=== PATIENT | female | born 1970 | race Caucasian/White ===

== ENCOUNTER 2022-11-30 16:42 | Inpatient (IN) | payer OTHER ==
[~2022-11-30] VITALS: Ht 160 cm; Wt 54.4 kg
[2022-11-30 18:07] LABS: BASOPHILS % 0.1 % (0.0-2.0); EOSINOPHILS % 0.3 % (0.0-5.0); HEMATOCRIT. 46.5 % (36.0-48.0); HEMOGLOBIN. 15.7 g/dL (12.0-16.0); LYMPHOCYTES % 10.2 % (20.0-50.0); MEAN CORPUSCULAR HEMOGLOBIN 31.8 pg (28.0-32.0); MEAN CORPUSCULAR HGB CONC 33.7 g/dL (31.0-37.0); MEAN CORPUSCULAR VOLUME 94.5 fL (81.0-99.0); MEAN PLATELET VOLUME 6.9 fl (7.4-10.4); MONOCYTES % 2.3 % (2.0-8.0); NEUTROPHILS % 87.1 % (40.0-76.0); PLATELET 610 x1000/uL (130-400); RED BLOOD CELL COUNT 4.93 mill/uL (4.2-5.4); RED CELL DISTRIBUTION WIDTH 12.9 % (11.6-14.6); WHITE BLOOD COUNT 8.4 x1000/uL (4.5-11.0)
[2022-11-30 18:16] LABS: CHLORIDE 106 mEq/L (98-107); INDEX HEMOLYSI 1 (1-3); INDEX ICTERIC 1 (1-4); INDEX LIPEMIC 1 (1-3); POTASSIUM 3.8 mEq/L (3.5-5.1); SODIUM 137 mEq/L (136-145)
[2022-11-30 18:25] LABS: ALANINE AMINOTRANSFERASE 40 IU/L (13-61); ALBUMIN 4.2 g/dL (3.4-5.0); ASPARTATE AMINOTRANSFERASE 26 IU/L (15-37); BILIRUBIN TOTAL 0.3 mg/dL (0.1-1.0); CALCIUM 9.5 mg/dL (8.5-10.1); CARBON DIOXIDE 24 mEq/L (21-32); CREATININE 0.8 mg/dL (0.6-1.3); GLUCOSE 122 mg/dL (70-105); PROTEIN TOTAL 8.8 g/dL (6.0-8.3); UREA NITROGEN BLOOD 17 mg/dL (7-21)
[2022-11-30 20:16] LABS: HCG SCREEN NEGATIVE
[2022-11-30 21:00] LABS: TROPONIN I HIGH SENSITIVITY 6 ng/L (<54)
[2022-11-30] MEDS ORDERED: FAMOTIDINE 20MG/2ML VIAL IV NR (21:15)
[2022-11-30] MEDS ORDERED: SODIUM CHLORIDE 0.9% 500 ML IV NR (21:17)
[2022-11-30] MEDS: ONDANSETRON HCL 4MG/2ML INJ IV NR (22:19)
[2022-12-01] MEDS ORDERED: IPRATROPIUM/ALBUTEROL 0.5-3(2.5)MG/3ML NEB HHN PRN
[2022-12-01] MEDS ORDERED: ACETAMINOPHEN 325MG TABLET PO PRN ×2
[2022-12-01] MEDS ORDERED: DIPHENHYDRAMINE 50MG/ML VIAL IV PRN
[2022-12-01] MEDS ORDERED: PROMETHAZINE HCL 25MG TABLET PO PRN
[2022-12-01] MEDS ORDERED: DOCUSATE SODIUM 100MG CAPSULE PO PRN
[2022-12-01] MEDS ORDERED: MAGNESIUM/ALUMINUM HYDROXIDE/SIMETHICONE 30ML UDC PO PRN
[2022-12-01] MEDS ORDERED: CLONIDINE 0.1MG TABLET PO PRN
[2022-12-01] MEDS ORDERED: GUAIFENESIN 200MG/10ML SUGAR FREE UDC PO PRN
[2022-12-01 01:08] LABS: CLARITY URINE CLOUDY (CLEAR); COLOR URINE DARK YELLOW (YELLOW); GLUCOSE URINE NEGATIVE (NEGATIVE); KETONES URINE 2+ (NEGATIVE); LEUKOCYTE ESTERASE URINE 2+ (NEGATIVE); NITRITE URINE NEGATIVE (NEGATIVE); OCCULT BLOOD URINE NEGATIVE (NEGATIVE); PH URINE 5.5 (4.5-8.0); PROTEIN URINE TRACE (NEGATIVE); SPECIFIC GRAVITY URINE 1.034 (1.005-1.030)
[2022-12-01 02:00] VITALS: BP 115/73; PULSE 90; RESP 20; TEMP 99.5
[2022-12-01] MEDS: ONDANSETRON HCL 4MG/2ML INJ IV NR (02:10)
[2022-12-01 02:21] LABS: WBC URINE 25-50 /hpf (0-2)
[2022-12-01 02:22] LABS: SQUAMOUS EPITHELIAL CELL URINE 1+ /lpf (RARE/1+)
[2022-12-01 02:23] LABS: BACTERIA URINE 3+
[2022-12-01] MEDS: ONDANSETRON HCL 4MG/2ML INJ IV PRN ×2 (02:26→08:42)
[2022-12-01] MEDS ORDERED: CEFTRIAXONE 2GM/50ML (ADDEASE) 50 ML IV SCH (03:30)
[2022-12-01] MEDS ORDERED: CEFTRIAXONE 2 G in DEXTROSE 5% WATER 50 ML IV SCH (04:30)
[2022-12-01] MEDS ORDERED: IOHEXOL-300 100 ML BOTTLE ONE (06:12)
[2022-12-01] MEDS ORDERED: METOCLOPRAMIDE HCL 10MG/2ML VIAL IV NR (06:15)
[2022-12-01] MEDS ORDERED: SODIUM CHLORIDE 0.9% 1,000 ML IV SCH (06:30)
[2022-12-01 08:20] VITALS: BP 112/68; PULSE 95; RESP 18; TEMP 97.5
[2022-12-01 08:54] LABS: BASOPHILS % 0.4 % (0.0-2.0); EOSINOPHILS % 0.2 % (0.0-5.0); HEMOGLOBIN. 12.9 g/dL (12.0-16.0); LYMPHOCYTES % 11.9 % (20.0-50.0); MEAN CORPUSCULAR HEMOGLOBIN 32.2 pg (28.0-32.0); MEAN CORPUSCULAR HGB CONC 33.9 g/dL (31.0-37.0); MEAN PLATELET VOLUME 7.2 fl (7.4-10.4); MONOCYTES % 6.2 % (2.0-8.0); NEUTROPHILS % 81.3 % (40.0-76.0); PLATELET 515 x1000/uL (130-400); RED CELL DISTRIBUTION WIDTH 12.8 % (11.6-14.6); WHITE BLOOD COUNT 9.5 x1000/uL (4.5-11.0)
[2022-12-01] MEDS ORDERED: MECLIZINE 25MG TABLET PO SCH (09:00)
[2022-12-01 09:08] LABS: CHLORIDE 114 mEq/L (98-107); SODIUM 141 mEq/L (136-145)
[2022-12-01 09:23] LABS: ALANINE AMINOTRANSFERASE 29 IU/L (13-61); ALBUMIN 3.3 g/dL (3.4-5.0); ASPARTATE AMINOTRANSFERASE 18 IU/L (15-37); BILIRUBIN TOTAL 0.2 mg/dL (0.1-1.0); CALCIUM 8.8 mg/dL (8.5-10.1); CARBON DIOXIDE 19 mEq/L (21-32); CHOLESTEROL 145 mg/dL (<200); CREATININE 0.8 mg/dL (0.6-1.3); GLUCOSE 97 mg/dL (70-105); HDL CHOLESTEROL 65 mg/dL (40-59); LDL CHOLESTEROL 67 mg/dL (5-100); PROTEIN TOTAL 6.9 g/dL (6.0-8.3); T4 FREE 0.89 ng/dL (0.76-1.46); TRIGLYCERIDE 110 mg/dL (0-150); UREA NITROGEN BLOOD 14 mg/dL (7-21)
[2022-12-01 09:44] LABS: BILIRUBIN DIRECT < 0.1 mg/dL (0.0-0.2); TROPONIN I HIGH SENSITIVITY 27 ng/L (<54)
[2022-12-01 10:30] LABS: FOLIC ACID (FOLATE) SERUM >20 ng/mL ng/mL (>5.38); VITAMIN B12 SERUM >2000 pg/mL pg/mL (211-911)
[2022-12-01] MEDS ORDERED: PROMETHAZINE HCL 25MG SUPP PR PRN (11:15)
[2022-12-01] MEDS: DEXTROSE 5% WATER 1,000 ML IV SCH (11:15)
[2022-12-01 12:00] VITALS: BP 122/62; PULSE 100; RESP 18; TEMP 98.6
[2022-12-01] MEDS ORDERED: BUTALBITAL/ACETAMINOPHEN/CAFFEINE 50/325/40MG TABLET PO PRN (12:15)
[2022-12-01] MEDS ORDERED: ONDANSETRON INJ 8 MG in DEXTROSE 5% WATER 46 ML IV PRN (12:15)
[2022-12-01] MEDS ORDERED: ATOG30TA PO (12:58)
[2022-12-01] MEDS ORDERED: RIZA10TA97 MT (12:58)
[2022-12-01] MEDS ORDERED: MESA0.37 PO (12:58)
[2022-12-01] MEDS ORDERED: ONDA8TAB13 MT (12:58)
[2022-12-01] MEDS ORDERED: CICL6.6S22 TP (13:14)
[2022-12-01] MEDS ORDERED: ALPR-340 MT (13:14)
[2022-12-01] MEDS ORDERED: MELA1TAB51 PO (13:14)
[2022-12-01] MEDS ORDERED: SERT-112 MT (13:14)
[2022-12-01] MEDS ORDERED: CETI-338 PO (13:14)
[2022-12-01] MEDS ORDERED: DIPH25CA83 MT (13:14)
[2022-12-01] MEDS ORDERED: TRET20CR5 TP (13:14)
[2022-12-01] MEDS ORDERED: BECL10.6 INH (13:14)
[2022-12-01] MEDS ORDERED: LAMO200T50 MT (13:14)
[2022-12-01] MEDS ORDERED: WELC PO (13:14)
[2022-12-01] MEDS ORDERED: USTE90DI SQ (13:14)
[2022-12-01] MEDS ORDERED: ALBU90AE INH (13:14)
[2022-12-01] MEDS ORDERED: TOPI200T15 MT (13:14)
[2022-12-01] MEDS ORDERED: ERYT60GE9 TP (13:14)
[2022-12-01] MEDS ORDERED: RIBO400T MT (13:14)
[2022-12-01] MEDS ORDERED: ESTR0.6264 PO (13:14)
[2022-12-01] MEDS ORDERED: NARA2.5T2 PO (13:14)
[2022-12-01] MEDS ORDERED: DICY20TA2 MT (13:14)
[2022-12-01] MEDS ORDERED: [UNRECOGNIZED DRUG - CODE] PO (13:14)
[2022-12-01 13:15] LABS: *AMPHETAMINES SCREEN URINE NEGATIVE (NEGATIVE); *BARBITURATES SCREEN URINE PRESUMTIVE POSITIVE (NEGATIVE); *BENZODIAZEPINES SCREEN URINE NEGATIVE (NEGATIVE); *COCAINE SCREEN URINE NEGATIVE (NEGATIVE); CANNABINOID URINE SCREEN NEGATIVE (NEGATIVE); ECSTASY MDMA SCREEN URINE NEGATIVE (NEGATIVE); OPIATES URINE SCREEN NEGATIVE (NEGATIVE); PHENCYCLIDINE URINE SCREEN NEGATIVE (NEGATIVE)
[2022-12-01] MEDS: COLESEVELAM HCL 625MG TABLET PO SCH (13:27)
[2022-12-01] MEDS: SERTRALINE HCL 100MG TABLET PO SCH (13:27)
[2022-12-01] MEDS: LAMOTRIGINE 100MG TABLET PO SCH (13:27)
[2022-12-01 16:00] VITALS: BP 117/69; PULSE 95; RESP 18; TEMP 97.7
[2022-12-01] MEDS ORDERED: LORAZEPAM 2MG/ML CPJ IV PRN (17:15)
[2022-12-01] MEDS ORDERED: DEXTROSE 50% WATER 50ML SYRINGE IV PRN (17:15)
[2022-12-01] MEDS: MESALAMINE 400 MG CAPSULE.DR PO SCH (17:26)
[2022-12-01] MEDS: BLOOD SUGAR DIAGNOSTIC STRIP TEST SCH ×2 (17:40→20:20)
[2022-12-01 20:00] VITALS: BP 106/50; PULSE 80; RESP 18; TEMP 100.4
[2022-12-01 20:27] LABS: PHOSPHORUS 2.5 mg/dL (2.5-4.9)
[2022-12-01] MEDS ORDERED: ALPRAZOLAM 0.25 MG TABLET PO PRN (21:00)
[2022-12-01] MEDS: TOPIRAMATE 100MG TABLET PO SCH (21:15)
[2022-12-02] VITALS: BP 102/56; PULSE 91; RESP 20; TEMP 99.7
[2022-12-02] MEDS: DEXTROSE 5% WATER 1,000 ML IV SCH ×2 (00:19→13:40)
[2022-12-02 04:00] VITALS: BP 106/58; PULSE 88; RESP 20; TEMP 98.4
[2022-12-02 06:46] LABS: HEMATOCRIT 38.3 % (36.0-48.0); HEMOGLOBIN 13.1 g/dL (12.0-16.0); MEAN CORPUSCULAR HEMOGLOBIN 32.5 pg (28.0-32.0); MEAN CORPUSCULAR HGB CONC 34.1 g/dL (31.0-37.0); MEAN CORPUSCULAR VOLUME 95.1 fL (81.0-99.0); PLATELET 517 x1000/uL (130-400); RED BLOOD CELL COUNT 4.03 mill/uL (4.2-5.4); RED CELL DISTRIBUTION WIDTH 12.7 % (11.6-14.6); WHITE BLOOD COUNT 5.3 x1000/uL (4.5-11.0)
[2022-12-02] MEDS: CEFTRIAXONE 2 G in DEXTROSE 5% WATER 50 ML IV SCH (06:47)
[2022-12-02] MEDS: BLOOD SUGAR DIAGNOSTIC STRIP TEST SCH ×4 (06:47→20:59)
[2022-12-02 07:42] LABS: CHLORIDE 110 mEq/L (98-107); INDEX HEMOLYSI 1 (1-3); INDEX ICTERIC 1 (1-4); INDEX LIPEMIC 1 (1-3); POTASSIUM 3.4 mEq/L (3.5-5.1); SODIUM 139 mEq/L (136-145)
[2022-12-02 08:00] VITALS: BP 103/55; PULSE 73; RESP 20; TEMP 98.8
[2022-12-02 08:02] LABS: ALANINE AMINOTRANSFERASE 29 IU/L (13-61); ALBUMIN 3.4 g/dL (3.4-5.0); ASPARTATE AMINOTRANSFERASE 25 IU/L (15-37); BILIRUBIN TOTAL 0.3 mg/dL (0.1-1.0); CALCIUM 9.4 mg/dL (8.5-10.1); CARBON DIOXIDE 23 mEq/L (21-32); CREATININE 0.8 mg/dL (0.6-1.3); GLUCOSE 103 mg/dL (70-105); UREA NITROGEN BLOOD 7 mg/dL (7-21)
[2022-12-02] MEDS: MESALAMINE 400 MG CAPSULE.DR PO SCH ×2 (08:10→17:54)
[2022-12-02] MEDS: LAMOTRIGINE 100MG TABLET PO SCH (08:32)
[2022-12-02] MEDS: TOPIRAMATE 100MG TABLET PO SCH ×2 (08:32→20:56)
[2022-12-02] MEDS: SERTRALINE HCL 100MG TABLET PO SCH (08:40)
[2022-12-02] MEDS: COLESEVELAM HCL 625MG TABLET PO SCH (09:00)
[2022-12-02 12:00] VITALS: BP 111/58; PULSE 82; RESP 20; TEMP 98.6
[2022-12-02 16:00] VITALS: BP 114/61; PULSE 85; RESP 20; TEMP 97.2
[2022-12-02 20:00] VITALS: BP 105/64; PULSE 72; RESP 20; TEMP 99.8
[2022-12-03] VITALS: BP 109/63; PULSE 85; RESP 18; TEMP 99.8
[2022-12-03] MEDS: DEXTROSE 5% WATER 1,000 ML IV SCH (02:55)
[2022-12-03 04:00] VITALS: BP 121/74; PULSE 72; RESP 18; TEMP 99.3
[2022-12-03] MEDS: CEFTRIAXONE 2 G in DEXTROSE 5% WATER 50 ML IV SCH (05:43)
[2022-12-03] MEDS: BLOOD SUGAR DIAGNOSTIC STRIP TEST SCH (06:43)
[2022-12-03 07:19] LABS: BASOPHILS % 0.2 % (0.0-2.0); EOSINOPHILS % 1.3 % (0.0-5.0); HEMATOCRIT. 40.2 % (36.0-48.0); HEMOGLOBIN. 13.3 g/dL (12.0-16.0); LYMPHOCYTES % 22.7 % (20.0-50.0); MEAN CORPUSCULAR HGB CONC 33.1 g/dL (31.0-37.0); MEAN CORPUSCULAR VOLUME 96.7 fL (81.0-99.0); MEAN PLATELET VOLUME 6.6 fl (7.4-10.4); MONOCYTES % 10.4 % (2.0-8.0); NEUTROPHILS % 65.4 % (40.0-76.0); PLATELET 519 x1000/uL (130-400); RED BLOOD CELL COUNT 4.16 mill/uL (4.2-5.4); RED CELL DISTRIBUTION WIDTH 12.9 % (11.6-14.6); WHITE BLOOD COUNT 5.6 x1000/uL (4.5-11.0)
[2022-12-03 07:49] LABS: CHLORIDE 111 mEq/L (98-107); INDEX HEMOLYSI 2 (1-3); INDEX ICTERIC 1 (1-4); INDEX LIPEMIC 1 (1-3); POTASSIUM 3.7 mEq/L (3.5-5.1); SODIUM 139 mEq/L (136-145)
[2022-12-03 07:55] LABS: CALCIUM 8.9 mg/dL (8.5-10.1); CARBON DIOXIDE 22 mEq/L (21-32); CREATININE 0.7 mg/dL (0.6-1.3); GLUCOSE 100 mg/dL (70-105); UREA NITROGEN BLOOD 8 mg/dL (7-21)
[2022-12-03 08:00] VITALS: BP 108/60; PULSE 75; RESP 18; TEMP 97.4
[2022-12-03] MEDS: MESALAMINE 400 MG CAPSULE.DR PO SCH ×2 (08:10→10:08)
[2022-12-03 08:29] VITALS: BP 108/60; PULSE 75; TEMP 97.4; O2SAT 100
[2022-12-03] MEDS: COLESEVELAM HCL 625MG TABLET PO SCH ×2 (09:00→10:09)
[2022-12-03] MEDS: SERTRALINE HCL 100MG TABLET PO SCH ×2 (09:00→10:08)
[2022-12-03] MEDS: TOPIRAMATE 100MG TABLET PO SCH (10:08)
[2022-12-03] MEDS: LAMOTRIGINE 100MG TABLET PO SCH (10:09)
== END 2022-12-03 11:02 | disposition home or self-care (01) | DRG 54 ==
LOC: ER 16:42 → 4WST 23:09 → EDBEDREQTM 23:26 → EDBEDREQ 23:26 → 7WST 12-01 08:04
PROVIDERS: ADMIT Internal Medicine; ATTEND Internal Medicine
DX: D33.3 Benign neoplasm of cranial nerves (principal); U07.1 COVID-19; K50.90 Crohn's disease, unspecified, without complications; N39.0 Urinary tract infection, site not specified; H81.12 Benign paroxysmal vertigo, left ear; G43.909 Migraine, unspecified, not intractable, without status migrainosus; J40 Bronchitis, not specified as acute or chronic; F32.A Depression, unspecified; F41.9 Anxiety disorder, unspecified; D75.839 Thrombocytosis, unspecified; K82.8 Other specified diseases of gallbladder; Z90.49 Acquired absence of other specified parts of digestive tract; Z86.16 Personal history of COVID-19; Z79.899 Other long term (current) drug therapy; Z90.710 Acquired absence of both cervix and uterus; Z79.51 Long term (current) use of inhaled steroids
CPT/HCPCS: 36415; 71045; 74177; 76700; 80048; 80053; 80061; 80305; 81003; 82248; 82607; 82746; 82962; 83036; 83605; 83735; 84100; 84439; 84443; 84484; 84703; 85025; 85027; 87070; 87077; 87186; 87426; 87430; 93005; 99285; J0696; J1200; J2060; J2405; J2765; J3490; J7030; J7060; J7070; J8597; Q0169; Q9967